=== PATIENT | male | born 1965 | race Two or more races ===

== ENCOUNTER 2023-04-21 15:20 | Inpatient (IN) | payer OTHER ==
[~2023-04-21] VITALS: Ht 205.7 cm; Wt 108.9 kg
[2023-04-21] MEDS ORDERED: LORATADINE10 MG PO (16:14)
[2023-04-21] MEDS ORDERED: ALPHAGAN P5 M2 OP (16:15)
[2023-04-21] MEDS ORDERED: DILANTIN100 MG PO (16:15)
[2023-04-21] MEDS ORDERED: KEPPRA XR750 MG PO (16:15)
== END 2023-05-01 15:09 | disposition home or self-care (01) | DRG 389 ==
LOC: ER 15:20 → SEC-K 22:23 → SURH 22:23
PROVIDERS: General Practice; Student in an Organized Health Care Education/Training Program; ADMIT Internal Medicine; ATTEND Internal Medicine
PROC: BW21YZZ Computerized Tomography (CT Scan) of Abdomen and Pelvis using Other Contrast (ICD-10-PCS; principal; 2023-04-21)
PROC: 02HV33Z Insertion of Infusion Device into Superior Vena Cava, Percutaneous Approach (ICD-10-PCS; 2023-04-23)
PROC: BW21YZZ Computerized Tomography (CT Scan) of Abdomen and Pelvis using Other Contrast (ICD-10-PCS; 2023-04-27)
PROC: B24BZZZ Ultrasonography of Heart with Aorta (ICD-10-PCS; 2023-04-29)
DX: K56.690 Other partial intestinal obstruction (principal); G81.94 Hemiplegia, unspecified affecting left nondominant side; J90 Pleural effusion, not elsewhere classified; G40.909 Epilepsy, unspecified, not intractable, without status epilepticus; I10 Essential (primary) hypertension

== ENCOUNTER → 2023-08-27 | Emergency (ER) | payer OTHER ==
[~2023-08-27] VITALS: Ht 203.2 cm; Wt 108.9 kg
[~2023-08-27] MED LIST: ALPHAGAN P5 M2 OP; DILANTIN100 MG PO; KEPPRA XR750 MG PO; LORATADINE10 MG PO
== END | disposition left against medical advice (07) ==
LOC: ER 09:03
DX: Z53.21 Procedure and treatment not carried out due to patient leaving prior to being seen by health care provider (principal)

== ENCOUNTER 2024-04-13 11:45 | Emergency (ER) | payer OTHER ==
[~2024-04-13] VITALS: Ht 205.7 cm; Wt 113.4 kg
[2024-04-13] MEDS ORDERED: MONTELUKAST SOD10 MG PO (12:24)
[2024-04-13] MEDS ORDERED: COZAAR100 MG PO (12:25)
[2024-04-13 13:39] LABS: ABG PH 7.455 (7.35-7.45); ABG PO2 70.9 mmHg (80-100); ABG pCO2 32.7 mmHg (35-45); BASE EXCESS -0.6 mmol/l; BICARBONATE 22.5 mmol/l (23-25); SaO2 94.9 %; Tco2 23.5 mmol/l; o2 21 %
[2024-04-13 13:40] LABS: allen test SATISFACTORY; puncture site RADIAL RIGHT
[2024-04-13 14:55] LABS: HEMATOCRIT 43.1 % (39.0-48.0); HEMOGLOBIN 14.5 g/dL (13-16.00); MEAN CELL VOLUME 84.4 fL (80.0-100.00); MEAN CORPUSCULAR HEMOGLOBIN 28.5 pg (27.00-32.0); MEAN CORPUSCULAR HGB CONC 33.7 g/dl (32.0-36.0); PLATELET COUNT 191 K/uL (150-450); RED CELL DISTRIBUTION WIDTH 13.3 % (11.5-14.5)
[2024-04-13 15:01] LABS: PH,URINE 6.5 (5.0-8.0); URINE APPEARANCE Clear; URINE BILIRRUBIN Negative (NEGATIVE); URINE BLOOD NHT; URINE COLOR Yellow; URINE GLUCOSE Negative (NEGATIVE); URINE KETONE Negative (NEGATIVE); URINE LEUKOCYTE Negative; URINE NITRATE Negative; URINE PROTEIN Trace (NEGATIVE)
[2024-04-13 15:02] LABS: URINE BACTERIA 12.5 uL (0.0-1933); URINE RBC 30.5 uL (0.0-20.8)
[2024-04-13 15:05] LABS: INR 1.11; PARTIAL THROMBOPLASTIN TIME 30.5 SECONDS (22.0-34.0); PROTHROMBIN TIME 11.6 SECONDS (9.0-11.5)
[2024-04-13 15:11] LABS: URINE EPITHELIAL CELLS 0.9 uL (0.0-38.8); URINE WBC 1.2 uL (0.0-23.2)
[2024-04-13 15:17] LABS: ALBUMIN 2.9 gm/dL (3.4-5.0); BILIRUBIN TOTAL 0.35 mg/dL (0.3-1.2); CALCIUM 8.9 mg/dL (8.5-10.1); CREATININE SERUM 0.95 mg/dL (0.70-1.30); GFR 82.01; GLOBULINA 5.5 G/DL (2.4-3.5); POTASSIUM 3.73 mEq/L (3.5-5.1); TOTAL PROTEIN 8.4 gm/dL (6.4-8.2)
== END 2024-04-13 17:38 | disposition home or self-care (01) ==
LOC: ER 11:45
PROVIDERS: General Practice
DX: R53.81 Other malaise (principal); R06.02 Shortness of breath; Z20.822 Contact with and (suspected) exposure to COVID-19